=== PATIENT | female | born 1995 | race Caucasian/White ===

== ENCOUNTER → 2020-05-13 08:48 | Outpatient (CLI) | payer BC, SELFPAY ==
--- NOTE | ~2020-05-13 | US_ITS ---
EXAMINATION: US OB transvaginal DATE: 05/13/2020 09:14 INDICATION: First trimester dating TECHNIQUE: Real-time pelvic transvaginal ultrasound was performed. COMPARISON: None. FINDINGS: The uterus measures 6.4 x 3.7 x 4.2 cm. No definite intrauterine gestational sac is identif ied. The endometrial thickness measures 15 mm. The right ovary measures 3.3 x 2.1 x 1.6 cm. The left ovary measures 2.1 x 1.6 x 2.8 cm. There is normal vascular flow in the ovaries. There is no free flu id in the pelvis. IMPRESSION: 1. of unknown location. Although no intrauterine gestational sac is seen, this may be due t o early gestation. If the patient is clinically stable, recommend followup with serial beta-hCG and u ltrasound. Reviewed, dictated and finalized at location A. [employer] IMPRESSION: 1. of unknown location. Although no intrauterine gestational sac is s een, this may be due to early gestation. If the patient is clinically stable, r ecommend followup with serial beta-hCG and ultrasound.
== END ==
PROVIDERS: Visit Provider Nurse Practitioner
DX: Z36.87 Encounter for antenatal screening for uncertain dates (principal)
CPT/HCPCS: 76817

== ENCOUNTER 2020-05-20 07:08 | Outpatient (RCR) | payer BC, SELFPAY | END 2020-08-16 23:59 | disposition home or self-care (01) | LOC: ANHLAB 07:08 | PROVIDERS: PCP Registered Nurse; Visit Provider Obstetrics & Gynecology Gynecology | DX: Z36.87 Encounter for antenatal screening for uncertain dates (principal) | CPT/HCPCS: 36415; 84702 ==

== ENCOUNTER → 2020-05-31 15:34 | Outpatient (CLI) | payer BC, SELFPAY ==
--- NOTE | ~2020-05-31 | US_ITS ---
EXAMINATION: US OB transvaginal DATE: 05/31/2020 16:02 INDICATION: First trimester with uncertain dating. TECHNIQUE: Real-time pelvic ultrasound utilizing both a transvaginal and transabdominal probe was pe rformed. The interpreting radiologist was not present for the study. COMPARISON: 05/13/2020 FINDINGS: The uterus measures 9.6 x 4.9 x 5.5 cm. There is an intrauterine gestational sac. A yolk sac and fet al pole are identified. The crown rump length measures 10 mm, which correlates with an estimated gest ational age of 7 weeks and 1 days. heart motion is identified measuring 148 beats per minute (b pm) by M-mode Doppler. The right ovary measures 2.6 x 1.9 x 2.5 cm. The left ovary measures 2.7 x 1.7 x 2.6 cm. There is no free fluid in the pelvis. IMPRESSION: 1. Single living fetus with heart rate of 148 bpm. 2. Gestational age by ultrasound of 7 weeks 1 day(s) +/- 5 day(s) with ultrasound estimated date of delivery ([facility]ONELLA) of 01/16/2021. Reviewed, dictated and finalized at location A. [employer] IMPRESSION: 1. Single living fetus with heart rate of 148 bpm. 2. Gestational age by ultrasound of 7 weeks 1 day(s) +/- 5 day(s) with ultraso und estimated date of delivery (ANTONELLA) of 01/16/2021.
== END ==
PROVIDERS: PCP Registered Nurse; Visit Provider Obstetrics & Gynecology Gynecology
DX: Z36.87 Encounter for antenatal screening for uncertain dates (principal); Z3A.01 Less than 8 weeks gestation of pregnancy
CPT/HCPCS: 76817

== ENCOUNTER 2020-07-09 16:35 | Outpatient (CLI) | payer BC, SELFPAY ==
[2020-07-09 17:00] LABS: Basophils Absolute Auto 0.1 K/mm3 (0.0-0.1); Basophils Percent Auto 0.6 % (0.2-1.2); Eosinophils Absolute Auto 0.1 K/mm3 (0-0.3); Hematocrit 38.3 % (37.0-47.0); Hemoglobin 13.3 g/dL (12.0-15.0); Immature Granulocyte Absolute 0.03 K/mm3 (0.00-0.031); Immature Granulocyte Percent A 0.3 % (0-0.5); Lymphocytes Absolute Auto 2.59 K/mm3 (0.9-3.2); Lymphocytes Percent Auto 24.3 % (18.3-44.2); Mean Corpuscular HGB Conc 34.7 g/dl (32-36); Mean Corpuscular Hemoglobin 30.5 pg (26-34); Mean Corpuscular Volume 87.8 fl (80-100); Mean Platelet Volume 8.9 fl (7.4-10.4); Monocytes Absolute Auto 0.7 K/mm3 (0.1-0.6); Monocytes Percent Auto 6.2 % (2.6-8.5); Neutrophils Absolute Auto 7.2 K/mm3 (1.3-6.7); Neutrophils Percent Auto 67.6 % (45.5-73.1); Platelet Count Result 264 k/mm3 (150-375); Red Blood Count 4.36 M/mm3 (4.2-5.4); Red Cell Distribution Width 11.9 % (11.5-14.5); White Blood Count 10.7 K/mm3 (4.5-10.0)
[2020-07-09 17:57] LABS: HIV 1/2 Ab P24 Ag Result Negative (Negative)
[2020-07-09 18:54] LABS: Vitamin D 25 Hydroxy 39.5 ng/mL
[2020-07-09 19:02] LABS: Hepatitis B Surface Antigen Negative (Negative); Rubella IgG Antibody 7.8 IU/ML
[2020-07-12 09:55] LABS: Rapid Plasma Reagin Non-Reactive (NonReactive)
== END 2020-07-09 16:36 | disposition home or self-care (01) ==
LOC: ANHLAB 16:36
PROVIDERS: PCP Registered Nurse; Visit Provider Obstetrics & Gynecology Gynecology
DX: Z36.9 Encounter for antenatal screening, unspecified (principal); Z3A.00 Weeks of gestation of pregnancy not specified
CPT/HCPCS: 36415; 82306; 83036; 85025; 86592; 86703; 86762; 86850; 86900; 86901; 87340; G0432

== ENCOUNTER 2021-05-15 01:30 | Observation (INO) | payer BC, SELFPAY ==
[2021-05-15] VITALS (54 sets, daily range): BP systolic 102–125; BP diastolic 52–84; PULSE 82–121; RESP 11–26; TEMP 35.7–37.4; O2SAT 89–100
--- NOTE | ~2021-05-15 | CT_ITS ---
EXAMINATION: CT abdomen pelvis w con EXAM DATE: 05/15/2021 04:04 INDICATION: RUQ pain X 8 HRS. TECHNIQUE: Spiral CT of the abdomen and pelvis was performed following intravenous injection of 100 m L Omnipaque 350. Axial, coronal and sagittal images of the abdomen and pelvis were reviewed. The do se-length product (DLP) for this examination was 507.74 mGy-cm. The exposure was tailored according to patient size (auto mA exposure control), and iterative reconstruction (ASIR) was used as additiona l dose reduction technique. There is no prior study for comparison. FINDINGS: The liver, spleen, adrenal glands and pancreas are unremarkable. Gallbladder is unremarkab le. No biliary obstruction. Portal and splenic veins are patent. Kidneys enhance symmetrically. T here is no hydronephrosis. Scattered renal cysts, largest on the left measuring 2.6 cm. The uterus i s unremarkable. The bladder is unremarkable. There is no retroperitoneal or pelvic lymphadenopathy . Appendix identified anteromedial to the right ovary. The appendix origin diameter is about 5 mm, and the tip significantly more dilated to 1.3 cm. No adjacent inflammation but appearance indicates possi ble early acute tip appendicitis. No abscess. Measurements obtained, appendix indicated on axial imag e 146, 148. There is expected amount of colonic stool. No free intraperitoneal gas. The heart is normal in size. There are no pericardial or pleural effusions. The lung bases are unremarkable. Th ere are no osteoblastic or osteolytic lesions identified. IMPRESSION: Dilated appendix tip, possible acute uncomplicated tip appendicitis. Please clinically co rrelate. Reviewed, dictated and finalized at location A. [employer] IMPRESSION: Dilated appendix tip, possible acute uncomplicated tip appendicitis . Please clinically correlate.
--- NOTE | 2021-05-15 03:03 | ED.ABDPAIN ---
HPI - Abdominal Pain General Chief Complaint: Abdominal Pain Stated Complaint: abd pain Time Seen by Provider: 05/15/21 02:56 History of Present Illness HPI narrative: 26-year-old female presents to the emergency department for evaluation of right upper quadrant pain with associated nausea vomiting and diarrhea. Patient states that symptoms started after she ate at [employer] this evening. Patient states earlier today she did have a soft stool but was having no additional symptoms. Patient states after eating dinner she had onset of abdominal pain with the nausea vomiting diarrhea. Patient did have a child approximately 4 months ago. Patient denies having any issues with her gallbladder during or prior to . Patient denies any prior history of abdominal surgeries. Related Data Home Medications Medication Instructions Recorded Confirmed trazodone 50 mg PO HS 05/15/21 05/15/21 Allergies Allergy/AdvReac Type Severity Reaction Status Date / Time No Known Allergies Allergy Verified 05/15/21 02:57 Review of Systems Review of Systems: CONSTITUTIONAL: Denies fever, chills, or sweats. EYES: Denies visual changes, redness, or discharge. ENT: Denies rhinorrhea, congestion, sore throat, or otalgia. CARDIOVASCULAR: Denies chest pain, palpitations, or edema. RESPIRATORY: Denies cough or dyspnea. GASTROINTESTINAL: Mid abdominal pain with associated nausea vomiting and diarrhea GENITOURINARY: Denies dysuria or hematuria. SKIN: Denies rash or itching. MUSCULOSKELETAL: Denies back pain, joint pain, or myalgia. NEUROLOGIC: Denies headache, numbness, or weakness. PSYCHIATRIC: Denies anxiety or depression. Exam Narrative: APPEARANCE: Well appearing, no pain in distress, well-nourished. HEAD: normocephalic, atraumatic. EYES: PERRLA/EOMI, conjunctivae clear. NECK: Supple. No adenopathy, no masses. RESPIRATORY: Airway patent, respirations nonlabored. Clear to auscultation bilaterally, no rales, rhonchi, wheezing. CARDIOVASCULAR: Regular rate and rhythm without murmurs rubs or gallops. ABDOMINAL: Normal bowel sounds, upper quadrant tenderness to palpation. Some right lower quadrant tenderness to palpation. MUSCULOSKELETAL: Moves all extremities. Strength/ROM intact, No edema, No calf tenderness. NEURO: Alert. Cranial nerves II through XII intact. Good gait. Good coordination SKIN: Warm, dry. Normal Color PSYCHIATRIC: Normal affect/mood. Course Course Emergency Course: 26-year-old female presenting to the emergency department for evaluation of abdominal pain CT scan showed evidence of acute appendicitis. Case was discussed with the surgeon sludge control attendant and patient was accepted for observation. Patient was started on Zosyn. Patient had initially requested transfer to an outside facility. Called the outside facility and they have no open beds. Patient was informed and patient was comfortable with the plan to stay here for definitive treatment. Vital Signs Vital signs: Vital Signs Temperature 97.3 F L 05/15/21 01:34 Pulse Rate 120 H 05/15/21 01:34 Respiratory Rate 17 05/15/21 01:34 Blood Pressure 121/74 05/15/21 01:34 Pulse Oximetry 100 05/15/21 01:34 Temperature 98.0 F 05/15/21 06:00 Pulse Rate 116 H 05/15/21 06:01 Respiratory Rate 11 L 05/15/21 06:01 Blood Pressure 110/63 05/15/21 06:00 Pulse Oximetry 100 05/15/21 06:01 MDM - Abdominal Pain MDM Narrative Medical decision making narrative: Patient does have sometenderness at right upper quadrant and at right lower quadrant. Right lower quadrant is more tender than right upper quadrant. Patient had normal liver enzymes. Patient does have a leukocytosis of 18.8. Patient has a normal UA. Patient has no prior history of gallbladder disease. Case was discussed with surgery to be evaluated for suspected appendicitis. Differential Diagnosis Differential diagnosis: Likely abdominal pain, acute appendicitis, diverticulitis and other
[2021-05-15] MEDS: ONDANSETRON INJ 4 MG/2 ML VIAL IV PUSH ×5 (03:19→19:39)
[2021-05-15] MEDS: SODIUM CHLORIDE 0.9% IV 100 ML 500 ML (03:19)
[2021-05-15] MEDS: fentaNYL CITRATE INJ (*CRX) 100 MCG/2 ML VIAL 50 MCG IV PUSH (03:20)
[2021-05-15 03:22] LABS: Basophils Absolute Auto 0.1 K/mm3 (0.0-0.1); Basophils Percent Auto 0.3 % (0.2-1.2); Hematocrit 38.3 % (37.0-47.0); Hemoglobin 13.1 g/dL (12.0-15.0); Immature Granulocyte Absolute 0.09 K/mm3 (0.00-0.031); Immature Granulocyte Percent A 0.5 % (0-0.5); Lymphocytes Percent Auto 3.7 % (18.3-44.2); Mean Corpuscular HGB Conc 34.2 g/dl (32-36); Mean Corpuscular Hemoglobin 28.9 pg (26-34); Mean Corpuscular Volume 84.4 fl (80-100); Mean Platelet Volume 9.4 fl (7.4-10.4); Monocytes Absolute Auto 1.4 K/mm3 (0.1-0.6); Monocytes Percent Auto 7.6 % (2.6-8.5); Neutrophils Absolute Auto 16.5 K/mm3 (1.3-6.7); Neutrophils Percent Auto 87.9 % (45.5-73.1); Platelet Count Result 252 k/mm3 (150-375); Red Blood Count 4.54 M/mm3 (4.2-5.4); Red Cell Distribution Width 13.7 % (11.5-14.5); White Blood Count 18.8 K/mm3 (4.5-10.0)
[2021-05-15 03:32] LABS: Alanine Aminotransferase 29 U/L (4-35); Alkaline Phosphatase 98 U/L (38-126); Anion Gap 15 mmol/L (8-16); Aspartate Amino Transferase 29 U/L (14-36); Bilirubin,Total 0.6 mg/dL (0.2-1.3); Blood Urea Nitrogen 17 mg/dL (7-17); Carbon Dioxide 19 mmol/L (22-30); Chloride 104 mmol/L (98-107); Estimated CRCL calculation 81 ml/min; Estimated Glomerular Filt Rate > 60; Glucose 150 mg/dL (65-110); Lactic Acid Reflex 2.9 mmol/L (0.7-2.1); Lipase 66 U/L (23-300); Potassium 3.8 mmol/L (3.4-5.0); Sodium 138 mmol/L (137-145)
[2021-05-15] MEDS: SODIUM CHLORIDE 0.9% IV 1,000 ML 999 ML IV CONT ×2 (03:46→04:47)
[2021-05-15 04:05] LABS: Add Urine Microscopic? NO; Appearance Urine Clear (Clear); Bilirubin Urine Negative (Negative); Blood Urine Negative (Negative); Color Urine Yellow (Yellow); Glucose Urine UA Negative (Negative); Ketones Urine Negative (Negative); Leukocyte Esterase Ur Negative LEU/UL (Negative); Nitrate Urine Negative (Negative); Protein Urine Negative (Negative); Specific Grav Ur 1.024 (1.001-1.035); Urobilinogen Urine Negative mg/dL (<2.0)
[2021-05-15 04:17] LABS: Mucus Urine Rare /lpf; RBC Urine 0-2 /hpf (0-2); Squamous Epithelial Cell Urine Rare /hpf (Few); WBC Urine 0-3 /hpf
[2021-05-15] MEDS: HYDROmorphone HCL INJ (*CRX) 1 MG/ML SYR 0.5 MG IV PUSH ×3 (05:07→11:03)
[2021-05-15] MEDS: SODIUM CHLORIDE 0.9% IV 1,000 ML 125 ML IV CONT (05:57)
[2021-05-15 06:19] LABS: Reflex Lactic Acid Yes or No Add Lactic
--- NOTE | 2021-05-15 07:09 | PC.NURSE ---
Assumed care of pt. at this time. Report from ZAC Howell
[2021-05-15 09:15] LABS: Lactic Acid 1.2 mmol/L (0.7-2.1)
[2021-05-15] MEDS: MORPHINE SULFATE (*CRX) 2 MG/ML INJ IV PUSH ×3 (10:05→19:37)
--- NOTE | 2021-05-15 12:17 | PM.IMHP ---
H&P: HPI History of Present Illness Date/Time: 05/15/21 10:47 This pleasant patient is a 26-year-old white female who presented to the emergency department here at [facility] early this morning for evaluation of nausea, vomiting, and abdominal pain pain, also associated with some diarrhea. Patient states that symptoms started after she ate at [employer] the evening of 05/14/2021 at around 6-7 p.m.. Patient states earlier yesterday she did have a soft stool but was having no additional symptoms. Patient states after eating dinner ut last night she had onset of abdominal pain with the nausea, vomiting, and diarrhea. Patient did have a child approximately 4 months ago. ( normal vaginal delivery without complications) Patient denies having any issues with her gallbladder during or prior to . Patient denies any prior history of abdominal surgeries. Chief Complaint: Lower abdominal pain. Review of Systems Review of Systems: All systems reviewed & are unremarkable except as noted in HPI and below (HPI) Constitutional: Constitutional: Reports as per HPI, Reports chills ( Had a few chills last evening before coming to the hospital. ) and Denies fever(s) Comments: Pt took her temperature last evening and was about 97 F prior to presentation. Eyes: Eyes: Reports no additional eye complaints ENT: Reports Normal hearing present and Denies dizziness Cardiovascular: Cardiovascular: Reports no additional cardiovascular complaints, Denies chest pain and Denies irregular heart rhythm Comments: Has not previously known to have had tachycardia. Respiratory: Respiratory: Reports no additional respiratory complaints Gastrointestinal: Gastrointestinal: Reports no additional gastrointestinal complaints, Reports abdominal pain ( Mainly lower abdomen right greater than left), Denies bloating and Reports vomiting ( once after supper last night) Comments: Patient states pain started after she was out eating last evening when she had bone was swings at [employer]. Was out with her and he did not get sick. Genitourinary: Genitourinary: Denies hematuria and Reports vaginal discharge ( Had fairly normal peroid for her just after Ramesh) Comments: patient is now 4 months . She is not nursing her baby. she had normal vaginal delivery of a healthy male child Musculoskeletal: Musculoskeletal: Denies back pain Integumentary/Breasts: Skin/Breast: Reports system reviewed and no additional complaints, except as docu Comments: breast not examined. , no complaints, patient is not nursing her child. Neurologic: Reports Normal hearing present, Denies Abnormal speech present, Denies confusion and Denies dizziness Psychiatric: Psychiatric: Reports no additional psychiatric complaints and Denies confusion Endocrine: Endocrine: Reports no additional endocrine complaints Hematologic/Lymphatic: Hematologic/Lymphatic: Denies easy bleeding and Denies easy bruising Allergic/Immunologic: Allergic/Immunologic: Reports no additional allergic/immunologic complaints [facility] Surgical History Surgical History (Updated 05/15/21 @ 13:00 by Moose Hicks MD) History of wisdom tooth extraction Social History Social History (Updated 05/15/21 @ 13:02 by Moose Hicks MD) Social History: patient is and lives with her . Mother who is a medical typist in the lab accompanied her in the ED. Living arrangements: with family Sexual Orientation (if Verbalized by the Patient): Straight or Heterosexual Spiritual care concerns: No Meds Home Medications and Allergies Home Medications Medication Instructions Recorded Confirmed Type trazodone 50 mg PO HS 05/15/21 05/15/21 History Allergies Allergy/AdvReac Type Severity Reaction Status Date / Time No Known Allergies Allergy Verified 05/15/21 02:57 Vital Signs Vital Signs - 24 hr 05/15/21 01:34 05/15/21 03:39 0
[2021-05-15] MEDS: SODIUM CHLORIDE 0.9% IV 1,000 ML 150 ML IV CONT ×2 (13:30→20:43)
[2021-05-15] MEDS: METOCLOPRAMIDE HCL INJ 10 MG/2 ML VIAL IV PUSH (17:15)
[2021-05-15] MEDS: HYDROmorphone HCL INJ (*CRX) 1 MG/ML SYR IV PUSH (17:37)
--- NOTE | 2021-05-15 19:17 | ADMGEN ---
This patient, Evelia Hicks, was admitted to Medical Room 261-01. Patient/family oriented to hospital policies and general routines including ID bracelet, bed and alarms, visiting hours, pain management, procedures, bathroom and other care routines, personal items, smoking policy, room service/diet, and visiting hours. Information on how to activate the Rapid Response Team has been discussed. Patient/Family are encouraged to report perceived risks to care and to ask questions if they do not understand what they are told or what they should do.
--- NOTE | 2021-05-15 21:00 | ADMGEN ---
This patient, Evelia Hicks, was admitted to 2 Medical Room 261-01@[id number]. Patient/family oriented to hospital policies and general routines including ID bracelet, bed and alarms, visiting hours, pain management, procedures, bathroom and other care routines, personal items, smoking policy, room service/diet, and visiting hours. Information on how to activate the Rapid Response Team has been discussed. Patient/Family are encouraged to report perceived risks to care and to ask questions if they do not understand what they are told or what they should do.
[2021-05-16] VITALS (14 sets, daily range): BP systolic 100–129; BP diastolic 58–88; PULSE 68–92; RESP 14–18; TEMP 36–36.9; O2SAT 95–100
[2021-05-16] MEDS: MORPHINE SULFATE (*CRX) 2 MG/ML INJ IV PUSH (01:46)
[2021-05-16] MEDS: ONDANSETRON INJ 4 MG/2 ML VIAL IV PUSH (01:46)
[2021-05-16] MEDS: SODIUM CHLORIDE 0.9% IV 1,000 ML 150 ML IV CONT (03:48)
[2021-05-16 06:09] LABS: Basophils Percent Auto 0.5 % (0.2-1.2); Eosinophils Absolute Auto 0.1 K/mm3 (0-0.3); Eosinophils Percent Auto 1.1 % (0-4.4); Hematocrit 30.7 % (37.0-47.0); Immature Granulocyte Absolute 0.02 K/mm3 (0.00-0.031); Immature Granulocyte Percent A 0.2 % (0-0.5); Lymphocytes Absolute Auto 1.81 K/mm3 (0.9-3.2); Lymphocytes Percent Auto 22.2 % (18.3-44.2); Mean Corpuscular HGB Conc 32.6 g/dl (32-36); Mean Corpuscular Hemoglobin 28.8 pg (26-34); Mean Corpuscular Volume 88.5 fl (80-100); Mean Platelet Volume 9.5 fl (7.4-10.4); Monocytes Absolute Auto 0.7 K/mm3 (0.1-0.6); Monocytes Percent Auto 9.1 % (2.6-8.5); Neutrophils Absolute Auto 5.5 K/mm3 (1.3-6.7); Neutrophils Percent Auto 66.9 % (45.5-73.1); Platelet Count Result 188 k/mm3 (150-375); Red Blood Count 3.47 M/mm3 (4.2-5.4); Red Cell Distribution Width 13.9 % (11.5-14.5); White Blood Count 8.2 K/mm3 (4.5-10.0)
[2021-05-16 06:36] LABS: Anion Gap 5 mmol/L (8-16); Blood Urea Nitrogen 5 mg/dL (7-17); Calcium 7.9 mg/dL (8.4-10.2); Carbon Dioxide 22 mmol/L (22-30); Chloride 108 mmol/L (98-107); Estimated CRCL calculation 90 ml/min; Estimated Glomerular Filt Rate > 60; Glucose 104 mg/dL (65-110); Potassium 3.6 mmol/L (3.4-5.0); Sodium 135 mmol/L (137-145)
--- NOTE | 2021-05-16 07:46 | P.HPUP_ITS ---
History and Physical Update Update Date/Time: 05/16/21 07:46 History and Physical has been reviewed, including an updated exam of the patient. There are changes in the patient's condition. Pt has less pain than yesterday, but is still nauseated so wishes to proceed with surgical intervent ion. Risks, benefits, and alternatives have been discussed and questions answered. Patient agrees to proceed with procedure.
[2021-05-16] MEDS: CHLORHEXIDINE GLUCONATE 4% SOL 120 ML BTL 1 APPLIC TOPICAL (08:00)
--- NOTE | 2021-05-16 08:29 | PC.NURSE ---
To OR per bed, IV saline locked. Report given to Geovany FRANK. Patient was sent with all belongings and noon IV antibiotic dose due to patient staying down in the PACU area after surgery to either be discharged or stay down there as an overflow.
[2021-05-16] MEDS: LACTATED RINGERS 1,000 ML 30 ML IV CONT (08:50)
--- NOTE | 2021-05-16 09:01 | WPDANESEPPF ---
Anes - Initial Pre Proc Eval Procedure: Operation Date: 05/16/21 11:00 Proposed Procedures p Laparoscopic Appendectomy - Moose Hicks MD Date/Time: 05/16/21 09:01 Surgeon: Moose Hicks MD Pre Op Diagnosis: Appendicitis Patient Data Age: 26 Gender: F Height: 1.57 m Weight: 82 kg Last Vital Signs Temp 36.0 C L 05/16/21 08:30 Pulse 85 05/16/21 08:30 Resp 18 05/16/21 08:30 BP 111/71 05/16/21 08:30 Pulse Ox 99 05/16/21 08:30 Allergies Allergy/AdvReac Type Severity Reaction Status Date / Time No Known Allergies Allergy Verified 05/16/21 08:49 Home Medications Medication Instructions Recorded Confirmed Type trazodone 50 mg PO HS 05/15/21 05/15/21 History Laboratory Tests 05/15/21 05/16/21 05/16/21 08:54 05:32 05:32 WBC 8.2 K/mm3 K/mm3 (4.5-10.0) RBC 3.47 M/mm3 L M/mm3 (4.2-5.4) Hgb 10.0 g/dL L D g/dL (12.0-15.0) Hct 30.7 % L % (37.0-47.0) MCV 88.5 fl fl (80-100) MCH 28.8 pg pg (26-34) MCHC 32.6 g/dl g/dl (32-36) RDW 13.9 % % (11.5-14.5) Plt Count 188 k/mm3 k/mm3 (150-375) MPV 9.5 fl fl (7.4-10.4) Immature Gran % (Auto) 0.2 % % (0-0.5) Neut % (Auto) 66.9 % % (45.5-73.1) Lymph % (Auto) 22.2 % % (18.3-44.2) [place] % (Auto) 9.1 % H % (2.6-8.5) Eos % (Auto) 1.1 % % (0-4.4) Baso % (Auto) 0.5 % % (0.2-1.2) Lymph # (Auto) 1.81 K/mm3 K/mm3 (0.9-3.2) [place] # (Auto) 0.7 K/mm3 H K/mm3 (0.1-0.6) Eos # (Auto) 0.1 K/mm3 K/mm3 (0-0.3) Baso # (Auto) 0.0 K/mm3 K/mm3 (0.0-0.1) Abs Immat Gran (auto) 0.02 K/mm3 K/mm3 (0.00-0.031) Absolute Neuts (auto) 5.5 K/mm3 K/mm3 (1.3-6.7) Absolute Nucleated RBC 0.0 K/mm3 K/mm3 (0.0-0.012) Nucleated RBC % 0.0 % % (0.0-0.2) Sodium 135 mmol/L L mmol/L (137-145) Potassium 3.6 mmol/L mmol/L (3.4-5.0) Chloride 108 mmol/L H mmol/L (98-107) Carbon Dioxide 22 mmol/L mmol/L (22-30) Anion Gap 5 mmol/L L mmol/L (8-16) BUN 5 mg/dL L D mg/dL (7-17) Creatinine 0.80 mg/dL mg/dL (0.7-1.0) Estim Creat Clear Calc 90 ml/min ml/min Estimated GFR > 60 (59 - ) Glucose 104 mg/dL mg/dL (65-110) Lactic Acid 1.2 mmol/L mmol/L (0.7-2.1) Calcium 7.9 mg/dL L mg/dL (8.4-10.2) Patient hx anesthesia problems: none Family hx anesthesia problems: none Results Review: All pre-operative results and documents have been reviewed as part of the pre-operative evaluation. [facility] Past Medical History Medical History Anxiety Surgical History Surgical History History of wisdom tooth extraction Family History Family History Other Unknown family medical history Social History Social History Social History: patient is and lives with her . Mother who is a medical affairs manager in the lab accompanied her in the ED. Smoking status: Never smoker Alcohol intake: current Drinks per week: 3 Substance use: never Living arrangements: with family Gender identity (if verbalized by the patient): Female Sexual Orientation (if Verbalized by the Patient): Straight or Heterosexual Spiritual care concerns: No Anes - Eval Final PreProcedure Day of Procedure 05/16/21 09:01 Patient weight: obese Heart: regular rate and rhythm Lungs: clear to auscultation Airway: Mallampati scale class II Neurological: alert and oriented Last oral intake: >/= 8 hours ASA classification: II Emergent: no Anesthetic plan: proceed Anesthe
[2021-05-16] MEDS: BUPIVACAINE/EPINEPHRINE 0.25% 10 ML VIAL 30 ML INFILTRATE (11:58)
[2021-05-16] MEDS: fentaNYL CITRATE INJ (*CRX) 100 MCG/2 ML VIAL 25 MCG IV PUSH ×4 (12:55→13:38)
[2021-05-16] MEDS: LACTATED RINGERS 1,000 ML 100 ML IV CONT (14:35)
[2021-05-16] MEDS: HYDROcodone/acetaminophen (*CRX) 5-325 MG TABLET 1 TAB PO (15:29)
--- NOTE | 2021-05-16 18:05 | PC.NURSE ---
[id number]- Call to exchange to notify Dr. Hicks patient has tolerated dinner without nausea, pain is controlled and vital signs stable. Patient up ambulating in hallway and ambulated to restroom and voided. Patient requesting to be discharged home. Awaiting call back from Dr. Hicks for orders.
--- NOTE | 2021-05-16 18:20 | PC.NURSE ---
1819- Dr. Hicks returned phone call and stated patient OK for discharge home. Per Dr. Hicks he will place orders and send patient pain medication [place] to her preferred pharmacy.
--- NOTE | 2021-05-16 18:34 | PM.DS ---
DS: Admitting Diagnosis Discharge Date 05/16/2021 Admitting Diagnosis acute uncomplicated appendicitis DS: Discharge Diagnosis Discharge Diagnosis (1) Acute appendicitis: Onset Date: ~05/14/21 Qualifiers: Acute appendicitis type: unspecified acute appendicitis type Qualified Code(s): K35.80 - Unspecified acute appendicitis Code(s): K35.80 - Unspecified acute appendicitis Status: Acute Assessment and Plan: this was the main reason for the patient's admission. After initial CT scan which showed equivocal appendicitis with swelling of the tip and not much surrounding edema we tried antibiotic therapy for 24 hours. When I saw the patient early the morning of 05/16/2021 she was still having to take pain medicine and nausea medicine and not feeling well. Therefore she opted for surgical intervention which I agreed with. She had uncomplicated laparoscopic appendectomy. She felt much better afterwards and is ready to go home after tolerating both liquids and a little bit of soft food. Her pain is controlled now on p.o. medication ([place] 5/325). Will follow up the office in 2 weeks. (2) Tachycardia: Code(s): R00.0 - Tachycardia, unspecified Status: Acute (3) Class 1 obesity without serious comorbidity with body mass index (BMI) of 33.0 to 33.9 in adult: Code(s): E66.9 - Obesity, unspecified; Z68.33 - Body mass index [BMI] 33.0-33.9, adult Status: Acute DS: Summary Hospital Course Reason for hospitalization: acute uncomplicated appendicitis Hospital Course: After initial CT scan which showed equivocal appendicitis with swelling of the tip and not much surrounding edema we tried antibiotic therapy for 24 hours. When I saw the patient early the morning of 05/16/2021 she was still having to take pain medicine and nausea medicine and not feeling well. Therefore she opted for surgical intervention which I agreed with. She had uncomplicated laparoscopic appendectomy. She felt much better afterwards and is ready to go home after tolerating both liquids and a little bit of soft food. Her pain is controlled now on p.o. medication ([place] 5/325). Will follow up in the office in 2 weeks. Status at Discharge Cognitive/behavioral status at discharge: back to normal Functional status at discharge: independent ambulation Time Spent with Patient Time attestation: Total time spent providing and/or coordinating discharge services: Exam Const: General: cooperative, comfortable, alert and awake Orientation/consciousness: patient oriented x3 HENMT: Head: normal to inspection Mouth: Yes moist mucous membranes Eyes: Sclera: sclerae normal Pupils: Equal, round and reactive pupils present Neck: Neck: normal visual inspection and no JVD Chest: Chest palpation & inspection: normal inspection of the chest Resp: Effort & Inspection: normal respiratory effort Auscultation: clear to auscultation bilaterally Cardio: Jugular venous distension: no JVD Rate: regular rate GI: Inspection: incision ( clean and dry) and obesity GI Palp: Yes Tenderness to palpation present (GI) ( mild near incisions) Neuro: General: patient oriented x3 Cranial nerves: Yes Equal, round and reactive pupils present DS: Data Data Completed and Pending Pending studies at discharge: Pending at discharge 05/16/21 12:13 Surgical [PTH] Routine Labs on day of discharge: Labs from last 24 hours 05/16/21 05/16/21 05:32 05:32 WBC 8.2 RBC 3.47 L Hgb 10.0 L D Hct 30.7 L MCV 88.5 MCH 28.8 MCHC 32.6 RDW 13.9 Plt Count 188 MPV 9.5 Immature Gran % (Auto) 0.2 Neut % (Auto) 66.9 Lymph % (Auto) 22.2 [place] % (Auto) 9.1 H Eos % (Auto) 1.1 Baso % (Auto) 0.5 Lymph # (Auto) 1.81 [place] # (Auto) 0.7 H Eos # (Auto) 0.1 Baso # (Auto) 0.0 Abs Immat Gran (auto) 0.02 Absolute Neuts (auto) 5.5 Absolute Nucleated RBC 0.0 Nucleated RBC % 0.0 Sodium 135 L [place]
--- NOTE | 2021-05-16 22:17 | W.PM.PROC2 ---
Procedure Note - Detailed Date of Procedure 05/17/21 Pre-op Diagnosis Acute Uncomplicated Appendicitis Post-op Diagnosis same Procedure Performed laparoscopic appendectomy Surgeon Moose Hicks MD Supervisor [employer] [facility]. OR [employer] Anesthesia general Indications Patient had 24 hours of antibiotics and was still requiring pain medication and nausea medication. Therefore not improving improving appropriately for outpatient antibiotic treatment. Together she and I made the decision to proceed to surgical intervention for her probable acute appendicitis. Findings The distal half the appendix was significantly inflamed and densely adhered to a pocket of omentum had surrounded it. There was a few minor adhesions to the right tube but the appendix came away from that easily. Description of Procedure The patient was seen again in her hospital room. The risks, benefits, complications, treatment options, and expected outcomes were discussed with the patient and/or family. The possibilities of reaction to medication, pulmonary aspiration, perforation of viscus, bleeding, recurrent infection, finding a normal appendix, the need for additional procedures, failure to diagnose a condition, and creating a complication requiring transfusion or operation were discussed. There was concurrence with the proposed plan and informed consent was obtained. The site of surgery was properly noted/marked. The patient was taken to Operating Room, and a time out was preformed which identified this as the proper patient, and the procedure verified as laparoscopic appendectomy, possible open. The patient was placed in the supine position and general anesthesia was induced, along with placement of an orogastric tube, SCD hose, and a Elizondo catheter. The abdomen was prepped and draped in a sterile fashion. A 5 mm umbilical incision was made and the peritoneal cavity was accessed using the Veress needle technique. Once the abdomen was insufflated to 14 mmHg pressure a 5 mm XL trocar over the 0? 5 mm scope was carefully twisted into the abdomen via the umbilicus. The pneumoperitoneum was then established to steady pressure of 14 mm Hg. A 12 mm laparoscopic port was placed through a transverse suprapubic incision. An additional 5 mm cannula was then placed in in the left upper quadrant at the level custodial between the left costal margin and the umbilicus under direct vision. A careful evaluation of the entire abdomen was carried out. The patient was placed in Trendelenburg and left lateral decubitus position. The small intestines were retracted in the cephalad and left lateral direction away from the pelvis and right lower quadrant. The patient was found to have an enlarged and inflamed appendix that was extending [into the right side of the pelvis. There was no evidence of perforation. The appendix was carefully dissected. It was densely adhered within a pocket of omentum surrounding his distal 2/3. This was carefully dissected away with blunt sharp dissection and using a right angle hook Bovie cautery for some of the dissection. Once it was free a 45 mm ethicon endogastroentestinal stapler with a vascular load was placed across the mesoappendix. This was fired and hemostasis was checked along the staple line and appeared to be adequate. For this patient, this divided the entire mesoappendix and we were able to proceed immediately to stapling off the appendix at it's junction with the cecum. The appendix was then divided at its base using the same 45 mm stapler with a 3.5 mm bowel wall load. Minimal appendiceal stump was left in place. There was no evidence of bleeding, leakage, or complication after division of the appendix at its junction with the cecum. The appendix was then placed in an endobag which had been brought through the 12 mm suprapubic port site. The appendix and the bag were then extracted through this larger port site in the suprapubic position. The suprapubi
== END 2021-05-16 18:55 | disposition home or self-care (01) ==
LOC: ANHED 06:46 → ANH3MEDSUR 07:29 → ANH2MED 16:57 → ANHSUROVER 05-16 08:32
PROVIDERS: Admitting Provider Surgery; Emergency Provider Emergency Medicine; PCP Registered Nurse; Visit Provider Surgery
PROC: 0DTJ4ZZ Resection of Appendix, Percutaneous Endoscopic Approach (ICD-10-PCS; CPT 44970; principal; 2021-05-16 11:00)
DX: K35.30 Acute appendicitis with localized peritonitis, without perforation or gangrene (principal); R00.0 Tachycardia, unspecified; E66.9 Obesity, unspecified; Z68.33 Body mass index [BMI] 33.0-33.9, adult
CPT/HCPCS: 44970; 36415; 74177; 80048; 80053; 81003; 81025; 83605; 83690; 85025; 87040; 88304; 96361; 96365; 96366; 96375; 96376; 99285; A9270; G0378; J1100; J1170; J2250; J2270; J2405; J2543; J2704; J2710; J2765; J3010; J7030; J7120; Q9967